=== PATIENT | male | born 1955 | race Hispanic/Latino ===

== ENCOUNTER 2023-05-12 02:33 | Emergency (ER) | payer OTHER ==
[2023-05-12] MEDS ORDERED: CYCLOBENZAPRINE 10 MG TAB ONE (03:36)
[2023-05-12] MEDS ORDERED: DIAZEPAM 10 MG/2 ML INJ SYRINGE ONE (03:36)
[2023-05-12] MEDS ORDERED: KETOROLAC 30 MG/ML INJ ONE (03:36)
--- NOTE | 2023-05-12 04:06 | ER ---
Nurse's Notes [facility] Name: Sameer Barr Age: 67 yrs Sex: Male : 1955 Arrival Date: 05/12/2023 Time: 02:33 Bed 6 Private MD: Kavon Jack B Diagnosis: Cervical neck strain, neck pain Presentation: 05/12 02:50 Chief complaint: Patient states: RIGHT NECK PAIN AND STIFFNESS SINCE WAKING 1 DAY AGO. bp Coronavirus screen: At this time, the client does not indicate any symptoms associated with coronavirus-19. Ebola Screen: No symptoms or risks identified at this time. Initial Sepsis Screen: Does the patient meet any 2 criteria? No. Patient's initial sepsis screen is negative. Does the patient have a suspected source of infection? No. Patient's initial sepsis screen is negative. Risk Assessment: Do you want to hurt yourself or someone else? Patient reports no desire to harm self or others. Onset of symptoms was May 12, 2023. 02:50 Method Of Arrival: Wheelchair bp 02:50 Acuity: BRYN 3 bp Triage Assessment: 02:50 General: Appears distressed, uncomfortable, Behavior is cooperative, appropriate for bp age, anxious. Pain: Complains of pain in back of neck. Historical: - Allergies: 02:50 No Known Allergies; bp - PMHx: 02:50 Hypercholesterolemia; bp - Immunization history:: Adult Immunizations up to date. - Social history:: Smoking status: Patient denies any tobacco usage or history of. Screenin:50 [facility] ED Fall Risk Assessment (Adult) History of falling in the last 3 months, bp including since admission No falls in past 3 months (0 pts). 02:50 Abuse screen: Denies threats or abuse. Denies injuries from another. Nutritional bp screening: No deficits noted. Tuberculosis screening: No symptoms or risk factors identified. Assessment: 02:50 General: SEE TRIAGE NOTE. bp 03:40 Reassessment: Patient is alert, oriented x 3, equal unlabored respirations, skin bp warm/dry/pink. Patient states symptoms have improved. Neuro: Level of Consciousness is awake, alert, obeys commands, Oriented to Appropriate for age. 04:14 Reassessment: Patient states symptoms have improved. bp Vital Signs: 02:50 BP 164 / 81; Pulse 59; Resp 16; Temp 98; Pulse Ox 98% ; bp 03:38 BP 135 / 78; Pulse 56; Resp 15; Pulse Ox 95% ; bp 04:14 BP 135 / 74; Pulse 51; Resp 16; Pulse Ox 96% ; bp ED Course: 02:37 Patient arrived in ED. gm2 02:37 Kavon Jack MD is Private Physician. gm2 02:50 Arm band placed on. bp 02:50 Patient has correct armband on for positive identification. Bed in low position. Call bp light in reach. Side rails up X2. 02:51 Viv Jesus MD is Attending Physician. sp3 03:17 Michael Sierra, RN is Primary Nurse. bp 03:30 Inserted saline lock: 22 gauge in right forearm, using aseptic technique. Blood bp collected. 03:32 Triage completed. bp 04:14 C Spine Ap/Lat XRAY In Process Unspecified. EDMS 04:14 No provider procedures requiring assistance completed. IV discontinued, intact, bp bleeding controlled, No redness/swelling at site. Pressure dressing applied. Administered Medications: 03:30 Drug: Ketorolac IVP 30 mg IVP once Route: IVP; Site: right forearm; bp 04:15 Follow up: Response: No adverse reaction bp 03:30 Drug: Cyclobenzaprine PO 10 mg PO once Route: PO; bp 04:15 Follow up: Response: No adverse reaction bp 03:30 Drug: Diazepam IVP 2 mg IVP once Route: IVP; Site: right forearm; bp 04:15 Follow up: Response: No adverse reaction bp Medication: 04:14 VIS not applicable for this client. bp Outcome: 04:06 Discharge ordered by . sp3 04:14 Discharged to home ambulatory, bp 04:14 Condition: stable 04:14 Discharge instructions given to patient, Instructed on discharge instructions, follow up and referral plans. medication usage, Demonstrated understanding of instructions, follow-up care, medications, Prescriptions given X 2, 04:16 Patient left the ED. bp Signatures: Dispatcher [employer] EDMS Michael Sierra, RN RN bp Viv Jesus MD MD sp3 Sylwia Martinez gm2
--- NOTE | 2023-05-12 04:06 | EDPHYS ---
Physician Documentation [facility] Name: Sameer Barr Age: 67 yrs Sex: Male : 1955 Arrival Date: 05/12/2023 Time: 02:33 Bed 6 Private MD: Kavon Jack B ED Physician Viv Jesus HPI: 05/12 03:00 This 67 yrs old Male presents to ER via Unassigned with complaints of Neck sp3 Pain, >24Hrs Old. 03:00 67-year-old male with a history of hyperlipidemia now presents with chief complaint sp3 right-sided neck/trapezius pain since yesterday morning after waking up. Patient states that it is a very sharp pain that comes and goes and is exacerbated with movement. He denies any known injury, fever, left-sided neck pain, chest pain, back pain, or any other somatic symptoms at this time. She is taken ibuprofen OTC which has not helped. ROS negative for headache, chest pain, shortness of breath, abdominal pain, nausea, vomiting, diarrhea, syncope, near syncope, focal neurological deficit, right upper extremity numbness tingling, or any other signs or symptoms at this time.. Historical: - Allergies: 02:50 No Known Allergies; bp - PMHx: 02:50 Hypercholesterolemia; bp - Immunization history:: Adult Immunizations up to date. - Social history:: Smoking status: Patient denies any tobacco usage or history of. ROS: 03:04 Constitutional: Negative for fever, chills, and weight loss, Eyes: Negative for injury, sp3 pain, redness, and discharge, ENT: Negative for injury, pain, and discharge, Neck: Negative for injury, pain, and swelling, Cardiovascular: Negative for chest pain, palpitations, and edema, Respiratory: Negative for shortness of breath, cough, wheezing, and pleuritic chest pain, Abdomen/GI: Negative for abdominal pain, nausea, vomiting, diarrhea, and constipation, Back: Negative for injury and pain, Skin: Negative for injury, rash, and discoloration, Neuro: Negative for headache, weakness, numbness, tingling, and seizure, Psych: Negative for depression, anxiety, suicide ideation, homicidal ideation, and hallucinations, Allergy/Immunology: Negative for hives, rash, and allergies, Endocrine: Negative for neck swelling, polydipsia, polyuria, polyphagia, and marked weight changes, Hematologic/Lymphatic: Negative for swollen nodes, abnormal bleeding, and unusual bruising, 03:04 All other systems are negative, Exam: 03:04 Constitutional: This is a well developed, well nourished patient who is awake, alert, sp3 and in no acute distress. Head/Face: Normocephalic, atraumatic. Eyes: Pupils equal round and reactive to light, extra-ocular motions intact. Lids and lashes normal. Conjunctiva and sclera are non-icteric and not injected. Cornea within normal limits. Periorbital areas with no swelling, redness, or edema. ENT: Nares patent. No nasal discharge, no septal abnormalities noted. External auditory canals are clear. Oropharynx with no redness, swelling, or masses, exudates, or evidence of obstruction, uvula midline. Mucous membranes moist. Chest/axilla: Normal chest wall appearance and motion. Nontender with no deformity. No lesions are appreciated. Cardiovascular: Regular rate and rhythm with a normal S1 and S2. No gallops, murmurs, or rubs. Normal PMI, no JVD. No pulse deficits. Respiratory: Lungs have equal breath sounds bilaterally, clear to auscultation and percussion. No rales, rhonchi or wheezes noted. No increased work of breathing, no retractions or nasal flaring. Abdomen/GI: Soft, non-tender, with normal bowel sounds. No distension or tympany. No guarding or rebound. No evidence of tenderness throughout. Back: No spinal tenderness. No costovertebral tenderness. Full range of motion. Skin: Warm, dry with normal turgor. Normal color with no rashes, no lesions, and no evidence of cellulitis. Neuro: Awake and alert, GCS 15, oriented to person, place, time, and situation. Cranial nerves II-XII grossly intact. Motor strength 5/5 in all extremities. Sensory grossly intact. Cerebellar exam normal. Normal gait. Psych: Awake, alert, with orientation to person, place and time. Behavior, mood, and affect are within normal limits. 03:04 Neck: Pain to palpation on the right trapezius muscle. Muscle is in spasm. Neck exam otherwise normal. Right upper extremity exam is also normal., Vital Signs: 02:50 BP 164 / 81; Pulse 59; Resp 16; Temp 98; Pulse Ox 98% ; bp 03:38 BP 135 / 78; Pulse 56; Resp 15; Pulse Ox 95% ; bp 04:14 BP 135 / 74; Pulse 51; Resp 16; Pulse Ox 96% ; bp MDM: 02:58 Patient medically screened. sp3 03:05 Data reviewed: vital signs, nurses notes. ED course: 67-year-old male with inducible sp3 right trapezius pain/spasm. We will administer ketorolac IV, Valium IV and Flexeril p.o. as well as obtain cervical spine x-rays. If work-up is negative and patient is improved, we will safely discharge patient home. I am not highly suspicious for acute coronary syndrome, vascular pathology including aortic dissection and/or aneurysm, meningitis, or any other critical pathology at this time.. 04:05 ED course: Patient improved after medications. X-rays demonstrate no significant sp3 abnormality. We will safely discharge patient home on diclofenac and Flexeril p.o.. 05/12 02:59 Order name: C Spine Ap/Lat XRAY sp3 05/12 02:59 Order name: Saline Lock; Complete Time: 03:34 sp3 Administered Medications: 03:30 Drug: Ketorolac IVP 30 mg IVP once Route: IVP; Site: right forearm; bp 04:15 Follow up: Response: No adverse reaction bp 03:30 Drug: Cyclobenzaprine PO 10 mg PO once Route: PO; bp 04:15 Follow up: Response: No adverse reaction bp 03:30 Drug: Diazepam IVP 2 mg IVP once Route: IVP; Site: right forearm; bp 04:15 Follow up: Response: No adverse reaction bp Disposition Summary: 05/12/23 04:06 Discharge Ordered Notes: Location: Home sp3 Condition: Stable sp3 Diagnosis - Cervical neck strain, neck pain sp3 Followup: sp3 - With: Private Physician - When: Upon discharge from the Emergency Department - Reason: Continuance of care Discharge Instructions: - Discharge Summary Sheet sp3 - Acute Torticollis, Adult sp3 Forms: - Medication Reconciliation Form sp3 - Thank You Letter sp3 - Antibiotic Education sp3 - Prescription Opioid Use sp3 - Patient Portal Instructions sp3 - Leadership Thank You Letter sp3 Prescriptions: - Cyclobenzaprine 10 mg Oral Tablet - take 1 tablet ORAL route every 8 hours As needed; 30 tablet; Refills: 0, sp3 Product Selection Permitted - Diclofenac Sodium 75 mg Oral Tablet Sustained Release - take 1 tablet ORAL route 2 times per day; 30 tablet; Refills: 0, Product sp3 Selection Permitted Signatures: Michael Deshpande, RN RN Viv Sharp MD MD sp3
[2023-05-12 04:25] VITALS: TEMP 98
[2023-05-12 04:41] VITALS: BP 135/74; O2SAT 96
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
== END 2023-05-12 04:16 | disposition home or self-care (01) ==
LOC: ER 02:33
DX: S16.1XXA Strain of muscle, fascia and tendon at neck level, initial encounter (principal)
CPT/HCPCS: 72040; 96375; 96374; 99284; J3360